=== PATIENT | male | born 1945 | race Asian ===

== ENCOUNTER 2021-04-22 08:14 | Emergency (ER) | payer BC, MEDICAID, OTHER ==
[~2021-04-22] VITALS: Ht 170.2 cm; Wt 74.8 kg
[2021-04-22] MEDS ORDERED: IOHEXOL 300 MG/ML 100ML BOTTLE IJ ONE (09:25)
[2021-04-22 14:15] VITALS: BP 141/73
== END 2021-04-22 14:43 | disposition short-term general hospital (02) ==
LOC: EDBD 08:14 → ER 08:14
DX: S12.601A Unspecified nondisplaced fracture of seventh cervical vertebra, initial encounter for closed fracture (principal); S22.42XA Multiple fractures of ribs, left side, initial encounter for closed fracture; S09.8XXA Other specified injuries of head, initial encounter; J93.9 Pneumothorax, unspecified; E11.9 Type 2 diabetes mellitus without complications; I10 Essential (primary) hypertension; M25.512 Pain in left shoulder; Z20.822 Contact with and (suspected) exposure to COVID-19; V43.52XA Car driver injured in collision with other type car in traffic accident, initial encounter; Y93.89 Activity, other specified; Y92.488 Other paved roadways as the place of occurrence of the external cause; Y99.8 Other external cause status
CPT/HCPCS: 32556; 36415; 70450; 71045; 72125; 74177; 87426; 99291; Q9967

== ENCOUNTER 2024-06-30 17:33 | Inpatient (IN) | payer BC, MEDICAID, OTHER ==
[~2024-06-30] VITALS: Ht 165.1 cm; Wt 68.1 kg
[~2024-06-30 17:33] MED LIST: ATOR20TA PO; DULO20CA PO; FINA5TAB4 PO; LEVO25TA6 PO; LEVOTAB51 PO; METF-370 PO; OXYB5TAB14 PO; TAMS0.4C39 PO
[2024-06-30 19:12] LABS: Basophils # (auto) 0 10 ^3/uL (0-0.2); Basophils % (auto) 0.2 % (0.0-2.0); Eosinophils # (auto) 0 10 ^3/uL (0-0.8); Eosinophils % (auto) 0.3 % (0.0-7.0); Hematocrit 46.4 % (41.0-53.0); Hemoglobin 15.8 g/dL (13.5-17.5); Lymphocytes # (auto) 1.2 10 ^3/uL (0.4-5.4); Lymphocytes % (auto) 9.1 % (10.0-50.0); Mean Corpuscular Hemoglobin 32.1 pg (28.0-32.0); Mean Corpuscular Hgb Conc. 34.1 g/dL (32.0-36.0); Mean Corpuscular Volume 94.2 fL (80.0-100.0); Monocytes # (auto) 0.6 10 ^3/uL (0-1.3); Monocytes % (auto) 4.6 % (0.0-12.0); Neutrophils # (auto) 11.5 10 ^3/uL (1.6-8.6); Neutrophils % (auto) 85.8 % (37.0-80.0); Platelet Count (auto) 221 10^3/uL (140-450); Red Blood Cells 4.93 10^6/uL (4.5-5.90); Red Cell Distribution Width 13.4 % (11.8-14.3); White Blood Cell 13.4 10^3/uL (4.4-10.8)
[2024-06-30 19:47] LABS: Chloride 106 mmol/L (98-107); Potassium 3.8 mmol/L (3.5-5.1); Sodium 139 mmol/L (136-145)
[2024-06-30 19:48] LABS: Anion Gap 7 (5-15); Calcium 10.7 mg/dL (8.7-10.4); Carbon Dioxide 26 mmol/L (20-31)
[2024-06-30 19:53] LABS: BUN/Creatinine Ratio 18.8 (10.0-20.0); Blood Urea Nitrogen 19 mg/dL (9-23); Glucose 164 mg/dL (74-106)
[2024-06-30] MEDS: IOHEXOL 350 MG/ML 100ML IJ ONE (20:24)
[2024-07-01 07:43] LABS: Basophils # (auto) 0 10 ^3/uL (0-0.2); Basophils % (auto) 0.2 % (0.0-2.0); Eosinophils # (auto) 0.1 10 ^3/uL (0-0.8); Eosinophils % (auto) 1.3 % (0.0-7.0); Hematocrit 42.8 % (41.0-53.0); Hemoglobin 14.6 g/dL (13.5-17.5); Lymphocytes # (auto) 1.3 10 ^3/uL (0.4-5.4); Lymphocytes % (auto) 12.8 % (10.0-50.0); Mean Corpuscular Hemoglobin 32.3 pg (28.0-32.0); Mean Corpuscular Hgb Conc. 34.2 g/dL (32.0-36.0); Mean Corpuscular Volume 94.4 fL (80.0-100.0); Monocytes # (auto) 0.7 10 ^3/uL (0-1.3); Monocytes % (auto) 6.4 % (0.0-12.0); Neutrophils # (auto) 8.2 10 ^3/uL (1.6-8.6); Neutrophils % (auto) 79.3 % (37.0-80.0); Nucleated Red Blood Cells % 0.1 %; Platelet Count (auto) 204 10^3/uL (140-450); Red Blood Cells 4.54 10^6/uL (4.5-5.90); Red Cell Distribution Width 13.3 % (11.8-14.3); White Blood Cell 10.3 10^3/uL (4.4-10.8)
[2024-07-01 07:55] LABS: Chloride 106 mmol/L (98-107); Potassium 3.9 mmol/L (3.5-5.1); Sodium 142 mmol/L (136-145)
[2024-07-01 07:56] LABS: Anion Gap 9 (5-15); Carbon Dioxide 27 mmol/L (20-31)
[2024-07-01 07:57] LABS: Calcium 10.3 mg/dL (8.7-10.4)
[2024-07-01] MEDS ORDERED: ACETAMINOPHEN 500 MG TAB PO PRN (08:00)
[2024-07-01] MEDS: InsuLIN REG 1unit/0.01ml Soln (100units/ml) SC SCH (08:00)
[2024-07-01] MEDS ORDERED: DEXTROSE (50%) 50ML SYRG IV PRN (08:00)
[2024-07-01] MEDS ORDERED: traMADol HCL 50 MG TAB PO PRN (08:00)
[2024-07-01] MEDS ORDERED: hydrALAZINE HCL 20 MG/ML VL IV PRN (08:00)
[2024-07-01] MEDS ORDERED: MORPHINE SULFATE INJ 2 MG/ml SYRG IV PRN (08:00)
[2024-07-01 08:02] LABS: BUN/Creatinine Ratio 18.5 (10.0-20.0); Blood Urea Nitrogen 17 mg/dL (9-23); Glucose 108 mg/dL (74-106)
[2024-07-01] MEDS: ACCU-CHEK COMFORT CURVE STRIP VI SCH (08:19)
[2024-07-01 08:43] LABS: INR 1.03 (0.9-1.15); Partial Thromboplastin Time 29.2 SEC (24.5-34.5); Prothrombin Time 10.9 sec (9.3-11.8)
[2024-07-01] MEDS: ENOXAPARIN SOD 40 MG/0.4 ML SYRINGE SC SCH (10:18)
[2024-07-02] VITALS (7 sets, daily range): BP systolic 114–125; BP diastolic 59–66; PULSE 65–79; RESP 16–20; TEMP 97.5–98.2; O2SAT 95–99
[2024-07-02 10:56] LABS: Basophils # (auto) 0 10 ^3/uL (0-0.2); Basophils % (auto) 0.5 % (0.0-2.0); Eosinophils # (auto) 0.2 10 ^3/uL (0-0.8); Eosinophils % (auto) 2.9 % (0.0-7.0); Hematocrit 38.2 % (41.0-53.0); Hemoglobin 13.4 g/dL (13.5-17.5); Lymphocytes # (auto) 1.1 10 ^3/uL (0.4-5.4); Lymphocytes % (auto) 17.5 % (10.0-50.0); Mean Corpuscular Hgb Conc. 35.2 g/dL (32.0-36.0); Mean Corpuscular Volume 93.6 fL (80.0-100.0); Monocytes # (auto) 0.4 10 ^3/uL (0-1.3); Monocytes % (auto) 6.3 % (0.0-12.0); Neutrophils # (auto) 4.7 10 ^3/uL (1.6-8.6); Neutrophils % (auto) 72.8 % (37.0-80.0); Nucleated Red Blood Cells % 0.1 %; Platelet Count (auto) 183 10^3/uL (140-450); Red Blood Cells 4.08 10^6/uL (4.5-5.90); Red Cell Distribution Width 13.1 % (11.8-14.3); White Blood Cell 6.4 10^3/uL (4.4-10.8)
[2024-07-02 11:13] LABS: Alanine Aminotransferase 12 U/L (7-40); Albumin 4.1 g/dL (3.2-4.8); Alkaline Phosphatase 48 U/L (46-116); Anion Gap 5 (5-15); Aspartate Aminotransferase 31 U/L (13-40); BUN/Creatinine Ratio 19.5 (10.0-20.0); Blood Urea Nitrogen 15 mg/dL (9-23); Calcium 9.7 mg/dL (8.7-10.4); Carbon Dioxide 30 mmol/L (20-31); Chloride 106 mmol/L (98-107); Glucose 137 mg/dL (74-106); Sodium 141 mmol/L (136-145)
[2024-07-02 11:14] LABS: Bilirubin, Total 0.9 mg/dL (0.2-1.0); Total Protein 6.4 g/dL (5.7-8.2)
[2024-07-02] MEDS: TAMSULOSIN HYDROCHLORIDE 0.4 MG CAP PO ONE (22:01)
[2024-07-03 05:00] VITALS: BP 118/60; PULSE 63; RESP 20; TEMP 97.6; O2SAT 93
[2024-07-03 08:00] VITALS: PULSE 69; RESP 17
[2024-07-03 09:00] VITALS: BP 112/58; PULSE 69; RESP 17; TEMP 97.6; O2SAT 96
[2024-07-03 09:29] LABS: Basophils # (auto) 0 10 ^3/uL (0-0.2); Basophils % (auto) 0.5 % (0.0-2.0); Eosinophils # (auto) 0.2 10 ^3/uL (0-0.8); Eosinophils % (auto) 3.6 % (0.0-7.0); Hematocrit 38.6 % (41.0-53.0); Hemoglobin 13.2 g/dL (13.5-17.5); Lymphocytes # (auto) 1.1 10 ^3/uL (0.4-5.4); Mean Corpuscular Hgb Conc. 34.3 g/dL (32.0-36.0); Mean Corpuscular Volume 93.4 fL (80.0-100.0); Monocytes # (auto) 0.4 10 ^3/uL (0-1.3); Monocytes % (auto) 6.2 % (0.0-12.0); Neutrophils # (auto) 4.3 10 ^3/uL (1.6-8.6); Neutrophils % (auto) 71.7 % (37.0-80.0); Platelet Count (auto) 194 10^3/uL (140-450); Red Blood Cells 4.13 10^6/uL (4.5-5.90); Red Cell Distribution Width 12.8 % (11.8-14.3)
[2024-07-03 13:00] VITALS: BP 122/66; PULSE 79; RESP 17; TEMP 98.1; O2SAT 94
[2024-07-03 16:02] VITALS: BP 122/66; PULSE 79; RESP 17; TEMP 98.1; O2SAT 94
[2024-07-03] MEDS: TAMSULOSIN HYDROCHLORIDE 0.4 MG CAP PO SCH (17:59)
== END 2024-07-03 18:00 | disposition home or self-care (01) | DRG 74 ==
LOC: ER 17:33 → EDBD 17:33 → TELE 07-01 06:13 → TELE-WESTW 07-01 23:44 → WEST WING 07-02 23:34
PROVIDERS: ADMIT Internal Medicine; ATTEND Internal Medicine
DX: G90.89 Other disorders of autonomic nervous system (principal); N40.1 Benign prostatic hyperplasia with lower urinary tract symptoms; E11.9 Type 2 diabetes mellitus without complications; N39.498 Other specified urinary incontinence; J32.0 Chronic maxillary sinusitis; I11.9 Hypertensive heart disease without heart failure
CPT/HCPCS: 36415; 70450; 70496; 71045; 72192; 76856; 80048; 80053; 82306; 82607; 82962; 83036; 83735; 84153; 84443; 84484; 85025; 85610; 85730; 93005; 93306; 93886; 96372; 97110; 97116; 97163; 97530; G0378; J1815

== ENCOUNTER 2025-02-14 20:53 | Emergency (ER) | payer OTHER ==
[~2025-02-14] VITALS: Ht 152.4 cm; Wt 68.2 kg
--- NOTE | 2025-02-14 23:06 | DVH ---
EXAM: XY R FOOT 3 VIEW XRAY HISTORY: first digit swelling and pain COMPARISON: None TECHNIQUE: Three views of the right foot were performed. Findings/ IMPRESSION: No acute fracture or dislocation. Moderate inferior calcaneal enthesophyte. No radiopaque foreign obj ects.
[2025-02-15 01:00] VITALS: BP 121/58; PULSE 73; RESP 17; TEMP 98.1; O2SAT 98
[2025-02-15] MEDS ORDERED: AMOX500T86 PO (01:16)
--- NOTE | 2025-02-15 01:16 | ED.PDOC ---
History of Present Illness(SKN HPI Comments BIBA FROM HOME FOR RIGHT BIG TOE PAIN AND SWELLING, PT IS SERBIAN SPEAKING ONLY, ABLE TO STATE NAME AND , SHRUGS SHOULDERS WITH ALL OTHER QUESTIONS, PER EMS STATED "I CALLED BECAUSE HIS FEET ARE SWOLLEN" Chief Complaint: Lower Extremity Time Seen by MD: 21:08 Primary Care Provider: UNKNOWN History of Present Illness: Nurses Notes, Medications, Allergies Allergies: Coded Allergies: NO KNOWN ALLERGIES (Unverified , 04/22/21) Home Meds Active Scripts Amoxicillin & Pot Clavulanate (Augmentin) 500 Mg Tab, 1 TAB PO BID for 7 Days, #14 TAB Prov:SABINO HALL ENGINEERING PROGRAM MANAGER 02/15/25 Reported Medications Oxybutynin Chloride (Oxybutynin Chloride) 5 Mg Tab, 1 TAB PO DAILY for 90 Days, #90 07/02/24 Duloxetine Hcl (Cymbalta) 20 Mg Cap, 1 CAP PO DAILY for 90 Days, #90 07/02/24 Levothyroxine Sodium (Levothyroxine Sodium) 25 Mcg Tab, 75 MCG PO DAILY for 90 Days, #90 07/02/24 Metformin Hydrochloride (Metformin Hcl) 500 Mg Tab, 2 TAB PO BID for 90 Days, #360 07/02/24 Tamsulosin Hcl (Tamsulosin Hcl) 0.4 Mg Cap, 2 CAP PO DAILY for 90 Days, #180 07/02/24 Finasteride (Finasteride) 5 Mg Tab, 1 TAB PO DAILY for 90 Days, #90 07/02/24 Levocetirizine Hydrochloride (Levocetirizine Dihydrochl) 5 Mg Tab, 1 TAB PO DAILY for 90 Days, #90 07/02/24 Atorvastatin Calcium (Lipitor) 20 Mg Tab, 1 TAB PO DAILY for 90 Days, #90 07/02/24 Information Source: Patient Mode of Arrival: EMS Past Medical History PAST MEDICAL HISTORY: DM, HTN Surgical History: Denies all surgeries Family History Family History: Reviewed,noncontributory to illness Social History Smoker: Non-Smoker Alcohol: Denies ETOH Use Drugs: Denies Drug Use Lives In: Home Constitutional: denies: chills, diaphoresis, fatigue, fever, malaise, sweats, weakness, others EENTM: denies: blurred vision, double vision, ear bleeding, ear discharge, ear drainage, ear pain, ear ringing, eye pain, eye redness, hearing loss, mouth pain, mouth swelling, nasal discharge, nose bleeding, nose congestion, nose pain, photophobia, tearing, throat pain, throat swelling, voice changes, others Respiratory: denies: cough, hemoptysis, orthopnea, SOB at rest, shortness of breath, SOB with excertion, stridor, wheezing, others Cardiovascular: denies: chest pain, dizzy spells, diaphoresis, Dyspnea on exertion, edema, irregular heart beat, left arm pain, lightheadedness, palpitations, PND, syncope, others Gastrointestinal: denies: abdomen distended, abdominal pain, blood streaked bowels, constipated, diarrhea, dysphagia, difficulty swallowing, hematemesis, melena, nausea, poor appetite, poor fluid intake, rectal bleeding, rectal pain, vomiting, others Genitourinary: denies: burning, dysuria, flank pain, frequency, hematuria, incontinence, penile discharge, penile sore, pain, testicle pain, testicle swelling, urgency, others Neurological: denies: dizziness, fainting, headache, left sided numbness, left sided weakness, numbness, paresthesia, pre-existing deficit, right sided numbness, right sided weakness, seizure, speech problems, tingling, tremors, weakness, others Musculoskeletal: reports: joint pain, joint swelling; denies: back pain, gout, muscle pain, muscle stiffness, neck pain, others Integumetry: denies: bruises, change in color, change in hair/nails, dryness, laceration, lesions, lumps, rash, wounds, others Allergic/Immunocompromised: denies: Difficulty Healing, Frequent Infections, Hives, Itching, others Hematologic/Lymphatic: denies: anemia, blood clots, easy bleeding, easy bruising, swollen glands, others Endocrine: denies: excessive hunger, excessive sweating, excessive thirst, excessive urination, flushing, intolerance to cold, intolerance to heat, unexplained weight gain, unexplained weight loss, others Psychiatric: denies: anxiety, bipolar disorder, depression, hopeless, panic disorder, schizophrenia, sleepless, suicidal, others Physical Exam General Appearance: No Apparent Distress, Normal HEENT: Pharynx Normal Neck: Full Range of Motion, Non-Tender Respiratory: Lungs Clear, No Respiratory Distress, Normal Breath Sounds Cardiovascular: No Edema, No JVD, No Murmur, No Gallop, Normal Peripheral Pulses, Regular Rate/Rhythm Breast Exam: Deferred Gastrointestinal: No Organomegaly, Non Tender, No Pulsatile Mass, Normal Bowel Sounds, Soft Genitalia: Deferred Pelvic: Deferred Rectal: Deferred Extremities: Normal capillary refill, Normal inspection, Normal range of motion, Non-tender, No pedal edema Musculoskeletal : Apperance: Normal Neurologic: Alert, cmm inspector II-XII nml as Tested, No Motor Deficits, Normal Affect, Normal Mood, No Sensory Deficits Cerebellar Function: Normal Reflexes: Normal Skin: Dry, Normal Color, Rash (RIGHT FOOT 1ST DIGIT NOTED SURROUNDING ERYTHEMA AROUND THE CUTICLE WITH EDEMA NO NOTED DRAINAGE OR OPEN LESIONS NO NOTED STREAKING STRENGTH SENSORY MOTION INTACT CAP REFILL LESS THAN 3 SECONDS), Warm Lymphatic: No Adenopathy Was a procedure done? Was a procedure done?: No Differential Diagnosis (INTG) Differential Diagnosis: Abrasion, Cellulitis, Contusion, Laceration, Puncture Wound Differential Diagnosis: Abscess X-Ray, Labs, Meds, VS Vital Signs Date Time Temp Pulse Resp B/P (MAP) Pulse Ox O2 Delivery O2 Flow Rate FiO2 02/14/25 21:10 97.6 73 20 163/77 (105) 98 97.6 X-Ray, Labs, Meds, VS Comment X-RAY OF RIGHT FOOT SHOWS NO ACUTE FRACTURES OSSEOUS LESIONS SUBLUXATIONS OR DISLOCATIONS. LIKELY INFECTED CUTICLE SCRIPT ANTIBIOTICS TO PATIENT'S PHARMACY ON FILE. ADVISED TO TAKE MEDICATIONS PRESCRIBED SIDE EFFECTS DISCUSSED. ADVISED TO FOLLOW UP WITH HIS PRIMARY CARE DOCTOR IN 2 DAYS ER RETURN PRECAUTIONS GIVEN PATIENT INDICATES UNDERSTANDING AGREES WITH DISCHARGE PLAN OF CARE. SON CALLED NOTIFYING OF DISCHARGE AND PATIENT WILL KNEE TRANSPORT HOME STATES HE WILL CALL HIS MOM TO HAVE FATHER PICKED UP Time of 1ST Reevaluation: 23:00 Reevaluation 1ST: Unchanged Time of 2ND Reevaluation: 01:10 Reevaluation 2ND: Improved Patient Education/Counseling: Diagnosis, Treatment, Prognosis, Need For Follow Up Family Education/Counseling: Other (PATIENT'S SON CALLED TO BOTTOM BLEACHER PATIENT READY FOR DISCHARGE) Departure 1 Departure Time of Disposition: 01:15 Impression: Primary Impression: Infection of toenail Disposition: HOME / SELF CARE / HOMELESS Condition: Stable e-Prescriptions Amoxicillin & Pot Clavulanate (Augmentin) 500 Mg Tab 1 TAB PO BID for 7 Days, #14 TAB Prov: SABINO HALL 02/15/25 Discharged With: Self Critical Care Note Critical Care Time?: No Stability Stability form required: No SABINO HALL February 15, 2025 01:16
== END 2025-02-15 08:27 | disposition home or self-care (01) ==
LOC: EDBD 20:53 → ER 20:59
DX: L03.031 Cellulitis of right toe (principal); E11.9 Type 2 diabetes mellitus without complications; I10 Essential (primary) hypertension; Z79.84 Long term (current) use of oral hypoglycemic drugs; Z79.899 Other long term (current) drug therapy
CPT/HCPCS: 73630

== ENCOUNTER 2025-03-18 19:26 | Emergency (ER) | payer OTHER ==
[~2025-03-18] VITALS: Ht 165.1 cm; Wt 68.0 kg
[2025-03-18 20:07] VITALS: BP 129/71; PULSE 96; RESP 18; TEMP 99.1; O2SAT 93
--- NOTE | 2025-03-18 21:29 | ED.PDOC ---
History of Present Illness(SKN HPI Comments 79 year old male presents to ER for wound check. Patient presents VIA EMS with PMH significant for diabetes, reporting that he's been experiencing pain/swelling/redness surrounding nailbed of right great toe x 1 month. Patient states he was seen and evaluated in ER here at onset of symptoms and finished Au gmentin antibiotics as prescribed without relief. Denies fever, body aches, chills, skin drainage, injury or any further symptoms/complaints Chief Complaint: Lower Extremity Time Seen by MD: 19:40 Primary Care Provider: JUAN History of Present Illness: Nurses Notes, Medications, Allergies Allergies: Coded Allergies: NO KNOWN ALLERGIES (Unverified , 04/22/21) Home Meds Active Scripts Acetaminophen (Acetaminophen) 500 Mg Tab, 500 MG PO Q4HPRN, #30 TAB 0 Refills Prov:OMAIRA MORALES 03/18/25 Sulfamethoxazole W/Trimethopri (Bactrim Ds Tablet) 1 Tab Tb, 1 TAB PO BID for 7 Days, #14 TAB 0 Refills Prov:OMAIRA MORALES 03/18/25 Reported Medications Oxybutynin Chloride (Oxybutynin Chloride) 5 Mg Tab, 1 TAB PO DAILY for 90 Days, #90 07/02/24 Duloxetine Hcl (Cymbalta) 20 Mg Cap, 1 CAP PO DAILY for 90 Days, #90 07/02/24 Levothyroxine Sodium (Levothyroxine Sodium) 25 Mcg Tab, 75 MCG PO DAILY for 90 Days, #90 07/02/24 Metformin Hydrochloride (Metformin Hcl) 500 Mg Tab, 2 TAB PO BID for 90 Days, #360 07/02/24 Tamsulosin Hcl (Tamsulosin Hcl) 0.4 Mg Cap, 2 CAP PO DAILY for 90 Days, #180 07/02/24 Finasteride (Finasteride) 5 Mg Tab, 1 TAB PO DAILY for 90 Days, #90 07/02/24 Levocetirizine Hydrochloride (Levocetirizine Dihydrochl) 5 Mg Tab, 1 TAB PO DAILY for 90 Days, #90 07/02/24 Atorvastatin Calcium (Lipitor) 20 Mg Tab, 1 TAB PO DAILY for 90 Days, #90 07/02/24 Information Source: Patient Mode of Arrival: EMS Past Medical History PAST MEDICAL HISTORY: DM, HTN, Thyroid Surgical History: Denies all surgeries Family History Family History: Unknown Social History Smoker: Non-Smoker Alcohol: Denies ETOH Use Drugs: Denies Drug Use Lives In: Home Constitutional: denies: chills, diaphoresis, fatigue, fever, malaise, sweats, weakness, others EENTM: denies: blurred vision, double vision, ear bleeding, ear discharge, ear drainage, ear pain, ear ringing, eye pain, eye redness, hearing loss, mouth pain, mouth swelling, nasal discharge, nose bleeding, nose congestion, nose pain, photophobia, tearing, throat pain, throat swelling, voice changes, others Respiratory: denies: cough, hemoptysis, orthopnea, SOB at rest, shortness of breath, SOB with excertion, stridor, wheezing, others Cardiovascular: denies: chest pain, dizzy spells, diaphoresis, Dyspnea on exertion, edema, irregular heart beat, left arm pain, lightheadedness, palpitations, PND, syncope, others Gastrointestinal: denies: abdomen distended, abdominal pain, blood streaked bowels, constipated, diarrhea, dysphagia, difficulty swallowing, hematemesis, melena, nausea, poor appetite, poor fluid intake, rectal bleeding, rectal pain, vomiting, others Genitourinary: denies: burning, dysuria, flank pain, frequency, hematuria, incontinence, penile discharge, penile sore, pain, testicle pain, testicle swelling, urgency, others Neurological: denies: dizziness, fainting, headache, left sided numbness, left sided weakness, numbness, paresthesia, pre-existing deficit, right sided numbness, right sided weakness, seizure, speech problems, tingling, tremors, weakness, others Musculoskeletal: denies: back pain, gout, joint pain, joint swelling, muscle pain, muscle stiffness, neck pain, others Integumetry: reports: others (As stated in HPI) Allergic/Immunocompromised: denies: Difficulty Healing, Frequent Infections, Hives, Itching, others Hematologic/Lymphatic: denies: anemia, blood clots, easy bleeding, easy bruising, swollen glands, others Endocrine: denies: excessive hunger, excessive sweating, excessive thirst, excessive urination, flushing, intolerance to cold, intolerance to heat, unexplained weight gain, unexplained weight loss, others Psychiatric: denies: anxiety, bipolar disorder, depression, hopeless, panic disorder, schizophrenia, sleepless, suicidal, others Physical Exam General Appearance: No Apparent Distress HEENT: PERRL/EOMI Neck: Full Range of Motion, Non-Tender, Normal Respiratory: Chest Non-Tender, Lungs Clear, No Accessory Muscle Use, No Respiratory Distress, Normal Breath Sounds Cardiovascular: No Murmur, No Gallop, Regular Rate/Rhythm Breast Exam: Deferred Gastrointestinal: NOT DONE Genitalia: Deferred Pelvic: Deferred Rectal: Deferred Extremities: Normal capillary refill, Normal range of motion Neurologic: Alert, No Motor Deficits, Normal Affect, Normal Mood, No Sensory Deficits Cerebellar Function: Normal Reflexes: Normal Skin: Dry, Warm, Other (Mild swelling/minimal erythema/TTP surrounding nailbed of right great toe noted. No drainage/further skin changes noted. Gait slowed due to pain localized to right great toe) Peripheral Pulses: 2+ dorsalis pedis (R), 2+ dorsalis pedis (L) Lymphatic: No Adenopathy Was a procedure done? Was a procedure done?: No Sedation Sedation?: No Differential Diagnosis (INTG) Differential Diagnosis: Abscess Differential Diagnosis: Neurovascular Injury Differential Diagnosis: Osteomyelitis, Puncture Wound X-Ray, Labs, Meds, VS Vital Signs Date Time Temp Pulse Resp B/P (MAP) Pulse Ox O2 Delivery O2 Flow Rate FiO2 03/18/25 20:07 99.1 96 18 129/71 (90) 93 99.1 03/18/25 19:26 99.1 96 18 129/71 (90) 93 99.1 Lab Test 03/18/25 21:28 Range/Units White Blood Count 7.7 4.4-10.8 10^3/uL Red Blood Count 4.69 4.5-5.90 10^6/uL Hemoglobin 15.0 13.5-17.5 g/dL Hematocrit 43.9 41.0-53.0 % Mean Corpuscular Volume 93.6 80.0-100.0 fL Mean Corpuscular Hemoglobin 31.9 28.0-32.0 pg Mean Corpuscular Hemoglobin Concent 34.1 32.0-36.0 g/dL Red Cell Distribution Width 13.4 11.8-14.3 % Platelet Count 221 140-450 10^3/uL Mean Platelet Volume 6.8 L 6.9-10.8 fL Neutrophils (%) (Auto) 70.0 37.0-80.0 % Lymphocytes (%) (Auto) 18.4 10.0-50.0 % Monocytes (%) (Auto) 6.7 0.0-12.0 % Eosinophils (%) (Auto) 4.0 0.0-7.0 % Basophils (%) (Auto) 0.9 0.0-2.0 % Neutrophils # (Auto) 5.4 1.6-8.6 10 ^3/uL Lymphocytes # (Auto) 1.4 0.4-5.4 10 ^3/uL Monocytes # (Auto) 0.5 0-1.3 10 ^3/uL Eosinophils # (Auto) 0.3 0-0.8 10 ^3/uL Basophils # (Auto) 0.1 0-0.2 10 ^3/uL Nucleated Red Blood Cells 0.1 % Erythrocyte Sedimentation Rate 8 0-20 mm/hr Sodium Level 145 136-145 mmol/L Potassium Level 4.4 3.5-5.1 mmol/L Chloride Level 108 H 98-107 mmol/L Carbon Dioxide Level 27 20-31 mmol/L Anion Gap 10 5-15 Blood Urea Nitrogen 20 9-23 mg/dL Creatinine 1.01 0.700-1.30 mg/dL Glomerular Filtration Rate Calc 75 >90 mL/min BUN/Creatinine Ratio 19.8 10.0-20.0 Serum Glucose 118 H 74-106 mg/dL Calcium Level 11.0 H 8.7-10.4 mg/dL PATIENT: KHALIF GUTIERREZ ACCT: [id number] UNIT: [id number] : 1945 LOC: ER ROOM / BED: / AGE / SEX: 79 / M ADM STATUS: REG ER SERVICE 15 ORDERING PHYSICIAN: OMAIRA MORALES PROCEDURE(s): RFOOT - R FOOT 3 VIEW XRAY REASON: right great toe pain ORDER NUMBER(s): [id number], ACCESSION NUMBER(s): [id number] CLINICAL INDICATION: right great toe pain TECHNIQUE: 3 radiographic views of the right foot were obtained. Comparison: XY R FOOT 3 VIEW XRAY on DOS: 02/14/25 FINDINGS/IMPRESSION: There is no evidence of acute fracture or dislocation. The visualized joint space is well maintained. The alignment is anatomical. There is no radiopaque foreign body. HS:Y ATED BY: OSWALD LAN Jr., DO DICTATED DATE/TIME: 03/18/252212 SIGNED BY: OSWALD LAN Jr., SIGNED DATE/TIME: 03/18/252212 CC: Previous chart visit reviewed Right foot x-ray reviewed CBC reviewed- without any significant abnormalities BMP reviewed - without any significant abnormalities ESR reviewed - normal Rocephin 1 g IM ordered Advised to f/u with PCP and arm rest builder in 1-2 days Plan of care was discussed with patient and patient's who both verbalized understanding and agreeable with current plan of care Advised to return to ER immediately if symptoms worsen Time of 1ST Reevaluation: 21:22 Reevaluation 1ST: N/A Patient Education/Counseling: Diagnosis, Treatment, Prognosis, Need For Follow Up Family Education/Counseling: No Family Present SEPSIS Sepsis Screen Date sepsis recognized/suspect: Mar 18, 2025 Time Sepsis recognized/suspect: 1927 Recent Procedure: No On Antibiotic Therapy: No Respiratory Rate >20: No Heart Rate >90: No Temp<36 C (96.8 F) or >38.3 C: No SBP <90 or MAP <65 mmHG: No New Acute Mental Status Change: No Is the patient on CPAP, BIPAP,: No Orders/Vitals/Labs Physician Orders R Foot 3 View Xray (03/18/25 21:16) Vital Signs Date Time Temp Pulse Resp B/P (MAP) Pulse Ox O2 Delivery O2 Flow Rate FiO2 03/18/25 20:07 99.1 96 18 129/71 (90) 93 99.1 03/18/25 19:26 99.1 96 18 129/71 (90) 93 99.1 Laboratory Tests Test 03/18/25 21:28 White Blood Count 7.7 10^3/uL (4.4-10.8) Departure 1 Departure Time of Disposition: 22:20 Impression: Primary Impression: Cellulitis of great toe, right Disposition: HOME / SELF CARE / HOMELESS Condition: Stable e-Prescriptions Acetaminophen (Acetaminophen) 500 Mg Tab 500 MG PO Q4HPRN, #30 TAB 0 Refills Prov: OMAIRA MORALES 03/18/25 Sulfamethoxazole W/Trimethopri (Bactrim Ds Tablet) 1 Tab Tb 1 TAB PO BID for 7 Days, #14 TAB 0 Refills Prov: OMAIRA MORALES 03/18/25 Discharged With: Friend Critical Care Note Critical Care Time?: No Stability Stability form required: No Heart Score Heart Score: Heart Score Response (Comments) Value History N/A 0 EKG N/A 0 Age N/A 0 Risk Factors N/A 0 Troponin N/A 0 Total 0 OMAIRA MORALES Mar 18, 2025 21:29
[2025-03-18 21:45] LABS: Basophils # (auto) 0.1 10 ^3/uL (0-0.2); Basophils % (auto) 0.9 % (0.0-2.0); Eosinophils # (auto) 0.3 10 ^3/uL (0-0.8); Hematocrit 43.9 % (41.0-53.0); Lymphocytes # (auto) 1.4 10 ^3/uL (0.4-5.4); Lymphocytes % (auto) 18.4 % (10.0-50.0); Mean Corpuscular Hemoglobin 31.9 pg (28.0-32.0); Mean Corpuscular Hgb Conc. 34.1 g/dL (32.0-36.0); Mean Corpuscular Volume 93.6 fL (80.0-100.0); Monocytes # (auto) 0.5 10 ^3/uL (0-1.3); Monocytes % (auto) 6.7 % (0.0-12.0); Neutrophils # (auto) 5.4 10 ^3/uL (1.6-8.6); Nucleated Red Blood Cells % 0.1 %; Platelet Count (auto) 221 10^3/uL (140-450); Red Blood Cells 4.69 10^6/uL (4.5-5.90); Red Cell Distribution Width 13.4 % (11.8-14.3); White Blood Cell 7.7 10^3/uL (4.4-10.8)
[2025-03-18 21:53] LABS: Potassium 4.4 mmol/L (3.5-5.1)
[2025-03-18 21:54] LABS: Anion Gap 10 (5-15); Carbon Dioxide 27 mmol/L (20-31)
[2025-03-18 21:59] LABS: BUN/Creatinine Ratio 19.8 (10.0-20.0); Blood Urea Nitrogen 20 mg/dL (9-23)
[2025-03-18 22:01] LABS: Chloride 108 mmol/L (98-107); Glucose 118 mg/dL (74-106); Sodium 145 mmol/L (136-145)
--- NOTE | 2025-03-18 22:16 | DVH ---
CLINICAL INDICATION: right great toe pain TECHNIQUE: 3 radiographic views of the right foot were obtained. Comparison: XY R FOOT 3 VIEW XRAY on DOS: 02/14/25 FINDINGS/IMPRESSION: There is no evidence of acute fracture or dislocation. The visualized joint space is well maintained. The alignment is anatomical. There is no radiopaque foreign body. HS:Y
[2025-03-18] MEDS ORDERED: BACDST PO (22:20)
[2025-03-18] MEDS ORDERED: ACET500T58 PO (22:20)
[2025-03-18 22:37] LABS: Erythrocyte Sedimentation Rate 8 mm/hr (0-20)
[2025-03-18] MEDS: cefTRIAXone SOD 1,000 MG VL IM ONE (22:43)
== END 2025-03-18 23:01 | disposition home or self-care (01) ==
LOC: EDBD 19:26 → ER 19:27
DX: L03.031 Cellulitis of right toe (principal); E11.9 Type 2 diabetes mellitus without complications; I10 Essential (primary) hypertension; Z79.84 Long term (current) use of oral hypoglycemic drugs; Z79.890 Hormone replacement therapy; Z79.899 Other long term (current) drug therapy
CPT/HCPCS: 36415; 73630; 80048; 85025; 85652; 96372; 99284; J0696